=== PATIENT | male | born 1990 | race Caucasian/White ===

== ENCOUNTER 2025-01-16 19:07 | Inpatient (IN) | payer OTHER, SELFPAY ==
[2025-01-16] VITALS (11 sets, daily range): BP systolic 141–163; BP diastolic 81–98; PULSE 63–99; RESP 17–28; TEMP 35.5–35.9; O2SAT 97–100; BMI 25.7
--- NOTE | 2025-01-16 19:14 | ED_ITS ---
HPI - Abdominal Pain General Chief Complaint: Abdominal Pain Stated Complaint: Severe abd pain, flank pain, vomiting Time Seen by Provider: 01/16/25 19:12 History of Present Illness HPI narrative: 34-year-old male without any significant past medical history comes into the ED from home for evaluation of right-sided flank pain right lower quadrant abdominal pain nausea ongoing persistent since yesterday, states that he felt some chills yesterday but these resolved, states that initially the pain went away yesterday and it came back today worse therefore came into the ED. denies any other symptoms of headache visual disturbance chest pain shortness of breath or any other GI/ symptoms at this time. No trauma no fall Related Data Home Medications ?Medication ?Instructions ?Recorded ?Confirmed No Known Home Medications 01/16/2512/29 Allergies Allergy/AdvReac Type Severity Reaction Status Date / Time No Known Drug Allergies Allergy Verified 01/16/25 19:12 Review of Systems Review of Systems Narrative: General: Denies fever, chills, weight loss HEENT: Denies headache, eye drainage, eye irritation, head trauma, sore throat, voice change Cardiovascular: Denies any chest pain, palpitations, tachycardia Respiratory: Denies any shortness of breath, cough, wheeze, stridor GI/: Positive abdominal pain, nausea, vomiting, denies diarrhea, bright red blood per rectum, melanotic stools, urinary frequency, urinary retention, dysuria, hematuria MSK: Denies any joint pain, muscle pains, swelling Skin: Denies any rashes, lesions, discoloration Neuro: Denies any headache, lightheadedness, dizziness, fainting, weakness Psych: Denies SI/HI Patient History Social History Smoking Status: Never smoker Exam Narrative Exam Narrative: General: Cooperative, well-developed, not in acute distress HEENT: Normocephalic, atraumatic, PERRLA, normal sclera, eyelids normal Neck: Active full range of motion, atraumatic Chest: Normal to inspection, negative crepitus, no overlying erythema ecchymosis Respiratory: Normal respiratory effort, not in acute respiratory distress, clear to auscultation bilaterally negative cough, wheeze, tachypnea, rhonchi, rales Cardiology: Regular rate rhythm negative gallop, murmur, rubs GI/: No tenderness to palpation, soft, non rigid, normal to inspection, exam deferred MSK: Full active range of motion in all 4 extremities, atraumatic, no tenderness to palpation of any bony prominences Skin: No rashes or lesions noted Neuro: Alert awake oriented x3, moves all 4 extremities spontaneously, cranial nerves intact, able to answer all questions appropriately follows commands appropriately Psych: Cooperative, negative suicidal or homicidal ideations Initial Vital Signs Initial Vital Signs: Vital Signs Temperature 96 F L 01/16/25 19:13 Pulse Rate 85 01/16/25 19:13 Respiratory Rate 17 01/16/25 19:13 Pulse Oximetry 100 01/16/25 19:13 Oxygen Delivery Method Room Air 01/16/25 19:13 Course Orders Ordered: ED Orders 01/16/25 19:15 CT abdomen pelvis w con Stat 01/16/25 19:20 Complete Blood Count AUTO DIFF Stat Comprehensive Metabolic Panel Stat Lactate (Lactic Acid) Stat Lipase Stat MAG [Magnesium] Stat 01/16/25 20:34 US abdomen limited Stat 01/16/25 21:07 Urinalysis and Microscopic Stat Discontinued Medications Hydromorphone HCl (Hydromorphone 1 Mg/Ml Syringe) 1 mg IV NOW ONE Stop: 01/16/25 20:22 Last Admin: 01/16/25 20:28 Dose: 1 mg Documented By: CATALINA Sodium Chloride (Normal Saline 0.9%) 1,000 mls @ 1,000 mls/hr IV BOLUS ONE Stop: 01/16/25 20:13 Last Infusion: 01/16/25 20:34 Dose: Infused Documented By: Admin: 01/16/25 19:33 Dose: 1,000 mls/hr Documented By: CATALINA Sodium Chloride (Normal Saline 0.9%) 1,000 mls @ 1,000 mls/hr IV BOLUS ONE Stop: 01/16/25 20:13 Last Admin: 01/16/25 19:33 Dose: 1,000 mls/hr Documented By: CATALINA Piperacillin Sod/Tazobactam (Sod 4.5 gm/ Sodium Chloride) 100 mls @ 200 mls/hr IV STAT ONE Stop: 01/16/25 20:49 Last Admin: 01/16/25 20:59 Dose: 200 mls/hr Documented By: CATALINA Morphine Sulfate (Morphine 4 Mg/Ml Inj) 4 mg IV NOW ONE Stop: 01/16/25 19:15 Last Admin: 01/16/25 19:33 Dose: 4 mg Documented By: CATALINA Ondansetron HCl (Ondansetron 4 Mg/2 Ml Inj) 4 mg IV NOW ONE Stop: 01/16/25 19:15 Last Admin: 01/16/25 19:33 Dose: 4 mg Documented By: CATALINA Ondansetron HCl (Ondansetron 4 Mg/2 Ml Inj) 4 mg IV NOW ONE Stop: 01/16/25 20:22 Last Admin: 01/16/25 20:25 Dose: 4 mg Documented By: CATALINA Vital Signs Vital signs: Vital Signs - 8 hr 01/16/25 19:13 01/16/25 19:33 01/16/25 19:34 Temperature 96 F L Pulse Rate 85 63 Respiratory Rate 17 28 H Blood Pressure 162/98 H Pulse Oximetry 100 100 Oxygen Delivery Method Room Air Room Air 01/16/25 19:34 01/16/25 20:04 Temperature Pulse Rate 64 92 H Respiratory Rate 28 H 26 H Blood Pressure Pulse Oximetry 100 100 Oxygen Delivery Method Room Air Room Air MDM - Abdominal Pain Lab Data 01/16/25 19:20 01/16/25 19:20 Labs: Lab Results 01/16/25 Range/Units 19:20 WBC 10.0 (4.5-11.0) X10^3/uL RBC 4.34 L (4.5-5.9) X10^6/uL Hgb 14.7 (13.5-17.5) g/dL Hct 42.4 (41-53) % MCV 97.7 (80-100) fL MCH 33.8 (26-34) PG MCHC 34.6 (30-36) % RDW 13.9 (11.6-14.8) % Plt Count 215 (150-400) X10^3/uL Neut % (Auto) 82.3 H (50-75) % Lymph % (Auto) 8.7 L (25-40) % [place] % (Auto) 8.6 (3-14) % Eos % (Auto) 0.1 L (2-4) % Baso % (Auto) 0.3 (0-2) % Neut # (Auto) 8200 H (3709-7532) /uL Lymph # (Auto) 900 L (1541-4723) /uL [place] # (Auto) 900 (0-900) /uL Eos # (Auto) 0 (0-450) /uL Baso # (Auto) 0 (0-100) /uL Sodium 136 L (137-145) mmol/L Potassium 3.7 (3.4-5.1) mmol/L Chloride 100 (98-107) mmol/L Carbon Dioxide 18 L (22-32) mmol/L BUN 10 (9-20) mg/dL Creatinine 0.87 (0.66-1.25) mg/dL Estimated GFR > 60 (>60) mL/min BUN/Creatinine Ratio 11.5 (6-22) Glucose 135 H (70-99) mg/dL Lactate 5.0 H* (0.7-2.1) mmol/L Calcium 9.1 (8.4-10.2) mg/dL Magnesium 1.3 L (1.6-2.3) mg/dL Total Bilirubin 1.8 H (0.2-1.3) mg/dL AST 301 H (17-59) IU/L ALT 213 H (<50) IU/L Alkaline Phosphatase 122 (38-126) U/L Total Protein 8.0 (6.3-8.2) g/dL Albumin 4.8 (3.5-5.0) g/dL Globulin 3.2 (1.7-4.1) g/dL Albumin/Globulin Ratio 1.5 (1.0-2.8) Lipase 3732 H (23-300) U/L [facility] Narrative Medical decision making narrative: 34-year-old male without any pertinent past medical history comes into the ED from home for evaluation of right-sided flank and right lower quadrant abdominal pain associated with nausea and vomiting, started yesterday, patient describes it as sharp and shooting no radiation nothing making it better or worse. Patient without any leukocytosis but initial lactate elevated at 5.0, fluids already ordered, patient did have significantly elevated lipase at 3732, patient states he does not drink, also has elevated bilirubin at 1.8, AST elevated at 301, ALT elevated at 213 CT scan showing pancreatitis significant hepatic steatosis, however given elevated bilirubin and liver functions we will add ultrasound to rule out gallbladder pancreatitis, Did order dose of Zosyn at this time, did have a discussion with general surgeon Dr. Price who agrees this is most likely gallbladder pancreatitis agrees with current workup and admission. The patient's management plan was discussed Dr. Price, who agrees to admit the patient to their service and assumes care of this patient at this time. Full admission orders will be placed by the primary team. Discharge Plan Departure Patient Disposition: Admitted As Inpatient Clinical Impression: Pancreatitis Admit Date/Time: 01/16/25 21:08 Admit Provider: Jaxon Price
--- NOTE | 2025-01-16 19:15 | DI.CT.S_ITS ---
PROCEDURE: CT ABDOMEN PELVIS W CON INDICATIONS: RLQ abd pain / right flank pain TECHNIQUE: After the administration of intravenous contrast, axial sections acquired from the lung bases to the pubic symphysis. Coronal and sagittal reformats were performed. For radiation dose reduction, the following was used: automated exposure control, adjustment of mA and/or kV according to patient size. COMPARISON: None. FINDINGS: Image quality: Diagnostic. Lower Chest: No significant findings. ABDOMEN: Liver: No solid mass. Significant hepatic steatosis. Gallbladder: No radiopaque gallstones or wall thickening. Biliary ducts: No biliary dilation. Pancreas: Peripancreatic edema is present. The pancreatic parenchyma itself enhances normally. No organized fluid collections. Spleen: Size is within normal limits. Adrenal Glands: No adrenal nodules. Kidneys and Ureters: No hydronephrosis. No solid mass. No complex renal cystic lesion which requires follow up. Stomach and Bowel: Normal colonic caliber, without significant wall thickening. Normal appendix. Peritoneum: Small fluid tracking down the right pericolic gutter. No free air. Ventral Wall: No significant ventral hernia. Abdominal Nodes: No retroperitoneal or mesenteric adenopathy by size criteria. Vessels: Aorta and inferior vena cava are normal in size. PELVIS: Pelvic Organs: Unremarkable. Bladder: No bladder wall thickening, accounting for underdistention. Pelvic Nodes: No enlarged lymph nodes. Miscellaneous: No inguinal hernias are seen. Bones: No aggressive osseous abnormality. IMPRESSION: 1. Findings consistent with acute pancreatitis. Recommend correlation with lipase and symptoms. No organized fluid collections. 2. Significant hepatic steatosis. Dictated by: Behzad Trevizo M.D. on 01/16/2025 at 20:24 Approved by: Behzad Trevizo M.D. on 01/16/2025 at 20:28
[2025-01-16] MEDS: SODIUM CHLORIDE 0.9% 1,000 ML 1000 ML IV ×2 (19:33)
[2025-01-16] MEDS: ONDANSETRON 4 MG/2 ML INJ IV ×2 (19:33→20:25)
[2025-01-16] MEDS: MORPHINE 4 MG/ML INJ IV (19:33)
[2025-01-16 19:35] LABS: Add Manual Diff / Slide Review NO; Hematocrit 42.4 % (41-53); Hemoglobin 14.7 g/dL (13.5-17.5); Lymphocytes Absolute Auto 900 /uL (1100-4500); Mean Corpuscular HGB Conc 34.6 % (30-36); Mean Corpuscular Hemoglobin 33.8 PG (26-34); Mean Corpuscular Volume 97.7 fL (80-100); Platelet Count 215 X10^3/uL (150-400)
--- NOTE | 2025-01-16 19:58 | PC.NURSE ---
Pt to imaging via ED stretcher with technical operations specialist
[2025-01-16 20:13] LABS: Alanine Aminotransferase 213 IU/L (<50); Albumin 4.8 g/dL (3.5-5.0); Albumin Globulin Ratio 1.5 (1.0-2.8); Alkaline Phosphatase 122 U/L (38-126); Blood Urea Nitrogen 10 mg/dL (9-20); Calcium 9.1 mg/dL (8.4-10.2); Carbon Dioxide 18 mmol/L (22-32); Chloride 100 mmol/L (98-107); Estimated Glomerular Filt Rate > 60 mL/min (>60); Globulin 3.2 g/dL (1.7-4.1); Glucose 135 mg/dL (70-99); HEMOLYSIS < 15 (0-50); Potassium 3.7 mmol/L (3.4-5.1); Sodium 136 mmol/L (137-145); Total Protein 8.0 g/dL (6.3-8.2)
[2025-01-16 20:17] LABS: Lactate (Lactic Acid) 5.0 mmol/L (0.7-2.1)
[2025-01-16 20:19] LABS: Lipase 3732 U/L (23-300)
--- NOTE | 2025-01-16 20:20 | PC.NURSE ---
Pt still actively vomiting after imaging, states pain is no better. technical specialist states pt shaking through exam.
[2025-01-16 20:33] LABS: Magnesium 1.3 mg/dL (1.6-2.3)
--- NOTE | 2025-01-16 20:34 | DI.US.S_ITS ---
PROCEDURE: US ABDOMEN LIMITED INDICATIONS: Rule out acute cholecystitis TECHNIQUE: Real-time scanning was performed of the abdominal and retroperitoneal organs, with image documentation. COMPARISON: None. FINDINGS: Liver: Liver is normal in size and homogeneous in echotexture. There is increased hepatic echogenicity. Gallbladder: No gallstones. No wall thickening. No pericholecystic edema. Negative sonographic Gann's sign. Biliary ducts: Intrahepatic bile ducts are non-dilated. Extrahepatic bile duct caliber measures 2 mm. Normal is 6-7 mm or less in diameter, or 10 mm or less post-cholecystectomy. Pancreas: Visualized portions of the pancreas are sonographically normal. Miscellaneous: No free abdominal fluid. IMPRESSION: Increased hepatic echogenicity can be seen the setting of attic steatosis. Correlate with LFTs. No cholelithiasis or sonographic evidence of acute cholecystitis. Approved by: Mirella Acosta M.D.,Ph.D. on 01/16/2025 at 23:03
[2025-01-16] MEDS: PIPERACILLIN/TAZO 4.5 GM in SODIUM CHLORIDE 0.9% 100 ML IV (20:59)
[2025-01-16 21:07] LABS: Reflexed Lactate in 2 Hours Y
--- NOTE | 2025-01-16 21:11 | PC.NURSE ---
Pt ambulatory to restroom without difficulty or assistance. Pt states feeling much more comfortable, nausea relieved and pain controlled. Pt reconnected to vs monitors. Dr. Vernon at bedside for update at this time. Call light within reach.
[2025-01-16 21:16] LABS: Appearance Urine UA CLEAR; Bilirubin Urine UA NEGATIVE (NEGATIVE); Color Urine UA YELLOW; Glucose Urine UA NEGATIVE (Negative); Ketones Urine UA 1+ (NEGATIVE); Leukocyte Esterase Urine UA NEGATIVE (NEGATIVE); Nitrite Urine UA NEGATIVE (Negative); Occult Blood Urine UA NEGATIVE (Negative); Protein Urine UA NEGATIVE (Negative); Specific Gravity Urine UA 1.015 (1.000-1.035); Urobilinogen Urine UA 0.2 E.U./dL (0.2); pH Urine UA 5.5 (4.5-8.0)
--- NOTE | 2025-01-16 21:16 | PC.NURSE ---
Pt to US via ED wheelchair with lead injection mold technician
[2025-01-16 21:23] LABS: Culture Indicated Urine Cult Not Indicated
[2025-01-16 22:16] LABS: Lactate 2HR (Lactic Acid Rflx) 1.1 mmol/L (0.7-2.1)
[2025-01-16] MEDS: MORPHINE 2 MG/ML INJ IV ×2 (22:20→23:01)
[2025-01-16] MEDS: diphenhydrAMINE 50 MG/ML VIAL 25 MG IV (22:20)
[2025-01-16] MEDS: METOCLOPRAMIDE 10 MG/2 ML INJ IV (22:20)
[2025-01-16] MEDS: SODIUM CHLORIDE 0.9% 1,000 ML 125 ML IV (23:02)
[2025-01-17] MEDS: ONDANSETRON 4 MG/2 ML INJ IV ×3 (05:54→18:38)
[2025-01-17] MEDS: SODIUM CHLORIDE 0.9% 1,000 ML 125 ML IV (05:56)
[2025-01-17] MEDS: MAGNESIUM SULFATE 2 GM/50 ML PIGGYBACK IV (07:07)
--- NOTE | 2025-01-17 07:18 | DI.MRI.S_ITS ---
PROCEDURE: MR AB PANCREATIC/MRCP PROTOCOL INDICATIONS: ?gallstone pancreatitis; ?choledocholithiasis (u/s neg) TECHNIQUE: Coronal HASTE through the abdomen, axial 2-D FLASH in- and [id number], and breath-hold T2 FSE with fat saturation through the biliary system and pancreas. Oblique coronal and axial thin-slice HASTE, radial thick-slab HASTE centered on the extrahepatic bile ducts. Axial T1 vibe pre and postcontrast and coronal postcontrast. 20 cc ProHance IV contrast. COMPARISON: [facility], US, US ABDOMEN LIMITED, 01/16/2025, 21:25. [facility], CT, CT ABDOMEN PELVIS W CON, 01/16/2025, 19:23. FINDINGS: Image quality: Diagnostic. Gallbladder: No gallstones or wall thickening. Trace pericholecystic fluid. Biliary ducts: No biliary dilation. CBD is not well seen. Pancreas: No ductal dilation. Question pancreas divisum. No cystic lesion or mass demonstrated. Extensive retroperitoneal edema which extends inferiorly. No loculated appearing collection at this time. No areas of hypoenhancing pancreatic tissue seen. OTHER: Lung bases: Unremarkable. Liver: No solid mass. Marked hepatic steatosis. Spleen: Size is within normal limits. Adrenal Glands: No adrenal nodules. Kidneys and Ureters: No hydronephrosis. No solid mass. No complex renal cystic lesion which requires follow up. Stomach and Bowel: No dilated loops of bowel seen. Peritoneum: Similar abdominal fluid mostly in the retroperitoneum. Ventral Wall: No hernia. Abdominal Nodes: No retroperitoneal or mesenteric adenopathy by size criteria. Vessels: Aorta and inferior vena cava are normal in size. Bones: No aggressive osseous abnormality. IMPRESSION: 1. Acute interstitial edematous pancreatitis. No necrosis or loculated fluid collection at this time. 2. No biliary or pancreatic ductal dilatation. Question pancreas divisum. 3. Severe hepatic steatosis. Dictated by: Yared Blackburn M.D. on 01/17/2025 at 15:30 Approved by: Yared Blackburn M.D. on 01/17/2025 at 15:48
--- NOTE | 2025-01-17 07:38 | P.HP_ITS ---
History of Present Illness History of Present Illness Date Patient Seen: 01/17/25 Time Patient Seen: 07:38 Chief complaint: Severe abd pain, flank pain, vomiting Narrative: 34yo M admitted through ED with pancreatitis, possible biliary etiology. U/S negative for stones or ductal dilation. No known gallbladder issues prior. C/O nausea in AM over prior 2 months. Past h/o heavy EtOH when unemployed two years ago, now social only. WBC 10 NLR 10. LFTs 1.8/301/213/122, Lipase 3732. CT +pancreatitis without phlegmon. Denies new drugs recently other then prn PPI. Mg low on admission and replaced with IV. Still with significant abd pain this morning requiring IV narcotics. PFSH Social History household members: significant other Smoking Status: Never smoker Meds Home Medications and Allergies Home Medications ?Medication ?Instructions ?Recorded ?Confirmed ?Type No Known Home Medications 01/16/2512/29 History Allergies Allergy/AdvReac Type Severity Reaction Status Date / Time No Known Drug Allergies Allergy Verified 01/16/25 19:12 Exam Vital Signs (past 8 hours): Oxygen Delivery Method Room Air Oxygen Flow Rate 0 Narrative Exam Narrative: Const Orientation: alert and oriented x3 HENMT Ears: hearing grossly normal bilaterally Eyes Visual Hernandez: normal visual hernandez by confrontation Conjunctivae: conjunctivae normal Sclera: sclerae normal EOM: EOM intact bilaterally Resp Effort & Inspection: normal respiratory effort and able to speak in complete sentences Cardio Rate: regular rate GI Palpation: soft, epigastric tenderness, recent IV dilaudid given Extrem General: no pedal edema and no calf tenderness Objective Labs 01/16/25 19:20 01/16/25 19:20 Labs: Laboratory Results - last 24 hr 01/16/25 01/16/25 01/16/25 19:20 21:06 21:58 WBC 10.0 RBC 4.34 L Hgb 14.7 Hct 42.4 MCV 97.7 MCH 33.8 MCHC 34.6 RDW 13.9 Plt Count 215 Neut % (Auto) 82.3 H Lymph % (Auto) 8.7 L [place] % (Auto) 8.6 Eos % (Auto) 0.1 L Baso % (Auto) 0.3 Neut # (Auto) 8200 H Lymph # (Auto) 900 L [place] # (Auto) 900 Eos # (Auto) 0 Baso # (Auto) 0 Sodium 136 L Potassium 3.7 Chloride 100 Carbon Dioxide 18 L BUN 10 Creatinine 0.87 Estimated GFR > 60 BUN/Creatinine Ratio 11.5 Glucose 135 H Lactate 5.0 H* 1.1 Calcium 9.1 Magnesium 1.3 L Total Bilirubin 1.8 H AST 301 H ALT 213 H Alkaline Phosphatase 122 Total Protein 8.0 Albumin 4.8 Globulin 3.2 Albumin/Globulin Ratio 1.5 Lipase 3732 H Urine Color Yellow Urine Appearance Clear Urine pH 5.5 Ur Specific [place] 1.015 Urine Protein Negative Urine Glucose (UA) Negative Urine Ketones 1+ H Urine Occult Blood Negative Urine Nitrate Negative Urine Bilirubin Negative Urine Urobilinogen 0.2 Ur Leukocyte Esterase Negative Urine RBC None seen Urine WBC 0-1/hpf Ur Squamous Epith Cells 0-1 /hpf Urine Bacteria Occasional (0-1) Hyaline Casts 0-1/lpf Urine Mucus 1+ H Ur Culture Indicated? Cult not indicated Vol Urine Centrifuged 10ml (spun) Assessment & Plan Assessment and plan (1) Pancreatitis: Qualifiers: Chronicity: acute Pancreatitis type: unspecified pancreatitis type A cute pancreatitis complication: no infection or necrosis Qualified Code(s): K 85.90 - Acute pancreatitis without necrosis or infection, unspecified Status: Acute Plan Pancreatitis, unclear etiology Check MRCP Serial labs May need ERCP if no improvement Clinical picture would suggest biliary source but ultrasound negative Time-Based Coding :: [TOTAL MINUTES] spent with patient and on the chart (including review of chart, obtaining history, exam, reviewing outside data, placing orders, documenting exam and treatment plan, and counseling patient) on [DATE]. 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
[2025-01-17 08:00] VITALS: BP 156/107; PULSE 93; RESP 20; TEMP 35.7; O2SAT 97
[2025-01-17 10:25] LABS: Add Manual Diff / Slide Review NO; Hematocrit 41.0 % (41-53); Hemoglobin 14.2 g/dL (13.5-17.5); Lymphocytes Absolute Auto 500 /uL (1100-4500); Mean Corpuscular HGB Conc 34.5 % (30-36); Mean Corpuscular Hemoglobin 34.0 PG (26-34); Mean Corpuscular Volume 98.5 fL (80-100); Platelet Count 167 X10^3/uL (150-400)
--- NOTE | 2025-01-17 10:33 | PC.NURSE ---
Phone message left for news camera person provider Dr. Moctezuma regarding urine output and patient request for Ativan prior to scheduled MRI, this RN awaiting response.
[2025-01-17 10:48] LABS: Alanine Aminotransferase 150 IU/L (<50); Albumin 4.0 g/dL (3.5-5.0); Albumin Globulin Ratio 1.4 (1.0-2.8); Alkaline Phosphatase 79 U/L (38-126); Globulin 2.8 g/dL (1.7-4.1); HEMOLYSIS < 15 (0-50); Magnesium 1.9 mg/dL (1.6-2.3); Total Protein 6.8 g/dL (6.3-8.2)
[2025-01-17 10:57] LABS: Lipase 2772 U/L (23-300)
[2025-01-17] MEDS: SODIUM CHLORIDE 0.9% 1,000 ML 1000 ML IV ×2 (12:00→16:04)
--- NOTE | 2025-01-17 13:29 | CM.DANOTE ---
Initial DCP Assessment Visit Note Reviewed EMR and team rounds for pt's status updates. Met with pt at bedside to introduce self and role. Pt was found to be alert/oriented, however was still very uncomfortable and symptomatic from the pancreatitis. Pt resides independently in his own home with his girlfriend in [place]. She will also plan to transport him home once he's medically cleared for d/c. Payor: Richar HINDS PCP: Dr. Reagan Pt is a 34 year-old M who presented to the ED last evening with c/o right lower quardant abdominal pain, R-sided flank pain, and nausea for the last 24-hours. CT scan was positive for pancreatitis and hepatic statosis. Surgery was consulted, who felt that pt was actually having gallbladder pancreatitis, and agreed to a plan to admit pt for IV antibiotics, fluids, and pain/symptom management. DCP will continue to follow for any further CM d/c needs, however none are anticipated at this time. Discharge Planning/Care Management CM Discharge Assessment Start: 01/16/25 21:59 Freq: Status: Active Protocol: Document 01/17/25 13:26 DPL (Rec: 01/17/25 13:27 DPL [id number]) Discharge Planning Assessment Assigned Discharge [facility] Poultry Technician Insurance Richar Advance Directives? No History Provided By Patient,Medical Record Has Patient been No admitted in last 30 days? Prior Living House Arrangements Household Members significant other Type of Drives own vehicle transporation used prior to admit Independent with ADL Yes 's Is patient alert and Yes oriented? Caregiver for No Another Comment N/A Barriers to No Discharge Discharge Plan Home Referrals Initiated None needed Whiteboard Updated Yes in Patient Room with name and ext. # of Instrument Assembly Supervisor Review Status In Process Please Provide Date 01/17/25 Initial DC Assessment Was Performed
[2025-01-17 15:08] VITALS: BP 148/101; PULSE 98; RESP 19; TEMP 36.2; O2SAT 98
[2025-01-17] MEDS: MORPHINE 2 MG/ML INJ IV (18:38)
[2025-01-17 19:49] VITALS: BP 145/103; PULSE 89; RESP 18; TEMP 36.1; O2SAT 97
[2025-01-18] MEDS: ONDANSETRON 4 MG/2 ML INJ IV
[2025-01-18] MEDS: SODIUM CHLORIDE 0.9% 1,000 ML 125 ML IV ×2 (01:04→08:39)
[2025-01-18 07:55] LABS: Add Manual Diff / Slide Review NO; Hematocrit 42.3 % (41-53); Hemoglobin 14.5 g/dL (13.5-17.5); Lymphocytes Absolute Auto 900 /uL (1100-4500); Mean Corpuscular HGB Conc 34.3 % (30-36); Mean Corpuscular Hemoglobin 34.2 PG (26-34); Mean Corpuscular Volume 99.8 fL (80-100); Platelet Count 149 X10^3/uL (150-400)
[2025-01-18 08:00] VITALS: BP 148/93; PULSE 97; RESP 16; TEMP 36; O2SAT 96
[2025-01-18 08:07] LABS: Alanine Aminotransferase 106 IU/L (<50); Alanine Aminotransferase 108 IU/L (<50); Albumin 3.5 g/dL (3.5-5.0); Albumin Globulin Ratio 1.3 (1.0-2.8); Albumin Globulin Ratio 1.4 (1.0-2.8); Alkaline Phosphatase 73 U/L (38-126); Alkaline Phosphatase 75 U/L (38-126); Blood Urea Nitrogen 6 mg/dL (9-20); Calcium 7.4 mg/dL (8.4-10.2); Carbon Dioxide 18 mmol/L (22-32); Chloride 106 mmol/L (98-107); Estimated Glomerular Filt Rate > 60 mL/min (>60); Globulin 2.5 g/dL (1.7-4.1); Globulin 2.6 g/dL (1.7-4.1); Glucose 100 mg/dL (70-99); HEMOLYSIS < 15 (0-50); Potassium 4.0 mmol/L (3.4-5.1); Sodium 136 mmol/L (137-145); Total Protein 6.0 g/dL (6.3-8.2); Total Protein 6.1 g/dL (6.3-8.2)
[2025-01-18 08:09] LABS: Lipase 865 U/L (23-300); Magnesium 1.8 mg/dL (1.6-2.3)
--- NOTE | 2025-01-18 11:37 | PM.PN.IH.1 ---
Subjective Subjective Date Patient Seen: 01/18/25 Time Patient Seen: 11:38 Interval history: Feeling somewhat better today All labs are improving Urine output has been over 30 mL an hour Exam Vital Signs (past 8 hours): - 01/18/25 08:00 Temperature 96.8 F L Pulse Rate 97 H Respiratory Rate 16 Blood Pressure 148/93 H Pulse Oximetry 96 Oxygen Delivery Method Room Air Oxygen Flow Rate 0 Narrative Exam Narrative: Abdomen is moderately distended and tender to palpation without guido peritoneal findings Objective Labs 01/18/25 07:18 01/18/25 07:18 Labs: Laboratory Results - last 24 hr 01/18/25 01/18/25 01/18/25 07:18 07:18 07:18 WBC 9.6 RBC 4.24 L Hgb 14.5 Hct 42.3 MCV 99.8 MCH 34.2 H MCHC 34.3 RDW 14.0 Plt Count 149 L Neut % (Auto) 81.2 H Lymph % (Auto) 9.8 L [place] % (Auto) 8.6 Eos % (Auto) 0.3 L Baso % (Auto) 0.1 Neut # (Auto) 7800 H Lymph # (Auto) 900 L [place] # (Auto) 800 Eos # (Auto) 0 Baso # (Auto) 0 Sodium 136 L Potassium 4.0 Chloride 106 Carbon Dioxide 18 L BUN 6 L Creatinine 0.77 Estimated GFR > 60 BUN/Creatinine Ratio 7.8 Glucose 100 H Calcium 7.4 L Magnesium 1.8 Total Bilirubin 2.3 H 2.1 H Conjugated Bilirubin 0.0 Unconjugated Bilirubin 0.8 AST 128 H 125 H ALT 108 H Alkaline Phosphatase Total Protein Albumin Globulin Albumin/Globulin Ratio Lipase 01/18/25 01/18/25 01/18/25 07:18 07:18 07:18 WBC RBC Hgb Hct MCV MCH MCHC RDW Plt Count Neut % (Auto) Lymph % (Auto) [place] % (Auto) Eos % (Auto) Baso % (Auto) Neut # (Auto) Lymph # (Auto) [place] # (Auto) Eos # (Auto) Baso # (Auto) Sodium Potassium Chloride Carbon Dioxide BUN Creatinine Estimated GFR BUN/Creatinine Ratio Glucose Calcium Magnesium Total Bilirubin Conjugated Bilirubin Unconjugated Bilirubin AST ALT 106 H Alkaline Phosphatase 75 73 Total Protein 6.1 L 6.0 L Albumin 3.5 Globulin Albumin/Globulin Ratio Lipase 1101/18/25 01/18/25 07:18 07:18 07:18 WBC RBC Hgb Hct MCV MCH MCHC RDW Plt Count Neut % (Auto) Lymph % (Auto) [place] % (Auto) Eos % (Auto) Baso % (Auto) Neut # (Auto) Lymph # (Auto) [place] # (Auto) Eos # (Auto) Baso # (Auto) Sodium Potassium Chloride Carbon Dioxide BUN Creatinine Estimated GFR BUN/Creatinine Ratio Glucose Calcium Magnesium Total Bilirubin Conjugated Bilirubin Unconjugated Bilirubin AST ALT Alkaline Phosphatase Total Protein Albumin 3.5 Globulin 2.6 2.5 Albumin/Globulin Ratio 1.3 1.4 Lipase 865 H D PFSH Social History household members: significant other Smoking Status: Never smoker Assessment & Plan Assessment and plan (1) Pancreatitis: Qualifiers: Acute pancreatitis complication: no infection or necrosis Chronicity: acute Pancreatitis type: unspecified pancreatitis type Qualified Code(s): K85.90 - Acute pancreatitis without necrosis or infection, unspecified Status: Acute Plan Pancreatitis appears to be resolving Start clear liquid diet today Time-Based Coding :: [TOTAL MINUTES] spent with patient and on the chart (including review of chart, obtaining history, exam, reviewing outside data, placing orders, documenting exam and treatment plan, and counseling patient) on [DATE]. 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
[2025-01-18] MEDS: MORPHINE 2 MG/ML INJ IV ×2 (14:15)
[2025-01-18] MEDS: SODIUM CHLORIDE 0.9% FLUSH 10 ML IV (22:11)
[2025-01-19 08:28] VITALS: BP 165/112; PULSE 99; RESP 16; TEMP 35.8; O2SAT 97
[2025-01-19 09:04] LABS: Add Manual Diff / Slide Review NO; Hematocrit 38.2 % (41-53); Hemoglobin 13.2 g/dL (13.5-17.5); Lymphocytes Absolute Auto 400 /uL (1100-4500); Mean Corpuscular HGB Conc 34.7 % (30-36); Mean Corpuscular Hemoglobin 34.0 PG (26-34); Mean Corpuscular Volume 98.2 fL (80-100); Platelet Count 141 X10^3/uL (150-400)
[2025-01-19 09:18] LABS: Lipase 329 U/L (23-300); Magnesium 2.0 mg/dL (1.6-2.3)
[2025-01-19 09:19] LABS: Alanine Aminotransferase 74 IU/L (<50); Albumin 3.4 g/dL (3.5-5.0); Albumin Globulin Ratio 1.2 (1.0-2.8); Alkaline Phosphatase 64 U/L (38-126); Globulin 2.8 g/dL (1.7-4.1); HEMOLYSIS < 15 (0-50); Total Protein 6.2 g/dL (6.3-8.2)
--- NOTE | 2025-01-19 10:04 | PM.PN.IH.1 ---
Subjective Subjective Date Patient Seen: 01/19/25 Time Patient Seen: 10:05 Interval history: Tolerated full liquid diet this morning with no increase in pain. Exam Vital Signs (past 8 hours): - 01/19/25 08:28 Temperature 96.5 F L Pulse Rate 99 H Respiratory Rate 16 Blood Pressure 165/112 H Pulse Oximetry 97 Oxygen Flow Rate 0 Oxygen Delivery Method Room Air Oxygen Flow Rate 0 Const General: healthy appearing and No acute distress Objective Labs 01/19/25 08:54 01/18/25 07:18 Labs: Laboratory Results - last 24 hr 01/19/25 08:54 WBC 8.6 RBC 3.89 L Hgb 13.2 L Hct 38.2 L MCV 98.2 MCH 34.0 MCHC 34.7 RDW 13.7 Plt Count 141 L Neut % (Auto) 81.7 H Lymph % (Auto) 5.2 L [place] % (Auto) 12.9 Eos % (Auto) 0.2 L Baso % (Auto) 0.0 Neut # (Auto) 7000 Lymph # (Auto) 400 L [place] # (Auto) 1100 H Eos # (Auto) 0 Baso # (Auto) 0 Magnesium 2.0 Total Bilirubin 2.1 H Conjugated Bilirubin 0.0 Unconjugated Bilirubin 0.7 AST 80 H ALT 74 H Alkaline Phosphatase 64 Total Protein 6.2 L Albumin 3.4 L Globulin 2.8 Albumin/Globulin Ratio 1.2 Lipase 329 H D PFSH Social History household members: significant other Smoking Status: Never smoker Assessment & Plan Assessment and plan (1) Pancreatitis: Qualifiers: Acute pancreatitis complication: no infection or necrosis Chronicity: acute Pancreatitis type: unspecified pancreatitis type Qualified Code(s): K85.90 - Acute pancreatitis without necrosis or infection, unspecified Status: Acute Plan Advance to regular diet and potential for discharge home this afternoon if no increase in abdominal pain. We discussed the radiographical finding of possible pancreas divisum. Recommended following up with a sales administrator who performed ERCP if there are additional episodes of pancreatitis. Time-Based Coding :: [TOTAL MINUTES] spent with patient and on the chart (including review of chart, obtaining history, exam, reviewing outside data, placing orders, documenting exam and treatment plan, and counseling patient) on [DATE]. 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
--- NOTE | 2025-01-19 10:58 | CM.DPNOTE ---
DCP note RELIEF MAN reviewed EMR per RN, doing well no new needs. per chart review, surgeon cleared pt for home. P: dc home today with OP f/u as needed. CM team will continue to follow in case any DCP Needs should arise [facility] [place]
== END 2025-01-19 13:36 | disposition home or self-care (01) | DRG 440 ==
LOC: ED 20:09 → AC 21:10
PROVIDERS: Surgery; Admitting Provider Surgery; Emergency Provider Student in an Organized Health Care Education/Training Program; PCP Internal Medicine; Referring Provider Student in an Organized Health Care Education/Training Program; Visit Provider Surgery
DX: K85.90 Acute pancreatitis without necrosis or infection, unspecified (principal); E83.42 Hypomagnesemia
CPT/HCPCS: 36415; 74177; 74183; 76705; 80053; 80076; 81001; 83605; 83690; 83735; 85025; 96365; 96375; 96376; 99284; A9579; J1171; J1200; J2060; J2270; J2272; J2405; J2543; J2765; J3475; J7030; J7050; Q9967